=== PATIENT | female | born 1965 | race Caucasian/White ===

== ENCOUNTER 2017-11-08 00:54 | Inpatient (IN) | payer OTHER ==
[~2017-11-08] VITALS: Ht 170.2 cm; Wt 61.9 kg
[~2017-11-08 00:54] MED LIST: ALBU18HF INH; ALBU8.5H5 INH; METR500T PO
[2017-11-08] MEDS ORDERED: DICYCLOMINE 20 MG TABLET PO ONE (01:30)
[2017-11-08] MEDS ORDERED: ONDANSETRON ODT 4 MG PO ONE (01:30)
[2017-11-08] MEDS ORDERED: MORPHINE SULFATE 4 MG/ML, 1ML ONE (01:47)
[2017-11-08] MEDS ORDERED: DICYCLOMINE 20 MG TABLET ONE (01:47)
[2017-11-08] MEDS ORDERED: ONDANSETRON ODT 4 MG ONE (01:47)
[2017-11-08] MEDS: MORPHINE SULFATE 4 MG/ML, 1ML IVPush PRN ×2 (02:00→04:02)
[2017-11-08 02:06] LABS: CLOSTRIDIUM DIFFICILE ANTIGEN NEGATIVE; CLOSTRIDIUM DIFFICILE TOXIN NEGATIVE (Negative)
[2017-11-08 02:18] LABS: BASOPHILS # (AUTO) 0.03 x10^3/uL (0-0.1); BASOPHILS % (AUTO) 1 % (0-1); EOSINOPHILS # (AUTO) 0.12 x10^3/uL (0-0.4); EOSINOPHILS % (AUTO) 3 % (1-7); LYMPHOCYTES # (AUTO) 1.39 x10^3/uL (1-3.4); LYMPHOCYTES % (AUTO) 29 % (22-44); MD NO; MEAN CORPUSCULAR HGB CONC 33.7 g/dL (32.4-35.8); MEAN CORPUSCULAR VOLUME 92.1 fL (80-100); MEAN PLATELET VOLUME 7.5 fL (7.4-10.4); MONOCYTES # (AUTO) 0.59 x10^3/uL (0.2-0.8); MONOCYTES % (AUTO) 12 % (2-9); NEUTROPHILS # (AUTO) 2.68 x10^3/uL (1.8-6.8); NEUTROPHILS % (AUTO) 56 % (42-75); PLATELET COUNT 114 x10^3/uL (130-400); RED BLOOD COUNT 4.47 x10^6/uL (3.82-5.3); RED CELL DISTRIBUTION WIDTH 15.4 % (9.6-15.2)
[2017-11-08 02:28] LABS: ALANINE AMINOTRANSFERASE 17 U/L (12-78); ALBUMIN 3.1 g/dL (3.4-5.0); ANION GAP 6 mmol/L (5-15); CALCIUM 8.7 mg/dL (8.5-10.1); CHLORIDE 112 mmol/L (98-107); CREATININE 0.74 mg/dL (0.55-1.02)
[2017-11-08 02:30] LABS: ALKALINE PHOSPHATASE 75 U/L (45-117); BILIRUBIN,TOTAL 0.8 mg/dL (0.2-1.0); TOTAL PROTEIN 7.6 g/dL (6.4-8.2)
[2017-11-08 04:00] VITALS: BP 139/74
[2017-11-08] MEDS: SODIUM CHLORIDE 0.9% 1,000 ML IV SCH ×3 (04:54→20:11)
[2017-11-08] MEDS ORDERED: ENALAPRILAT 1.25 MG/ML, 2ML IVPush PRN (05:00)
[2017-11-08] MEDS ORDERED: ACETAMINOPHEN 325 MG TABLET PO PRN (05:00)
[2017-11-08] MEDS ORDERED: TEMPLATE NON-FORMULARY MED. (Albuterol Sulfate (Ventolin Hfa) 2 PUFF(S)) INH SCH (05:00)
[2017-11-08] MEDS ORDERED: hydrALAzine 20 MG/ML, 1ML IVPush PRN (05:00)
[2017-11-08] MEDS ORDERED: GLEC1TAB PO (05:39)
[2017-11-08] MEDS ORDERED: METH10TA6 PO (05:39)
[2017-11-08 07:52] VITALS: BP 125/76
[2017-11-08] MEDS: morphine SULFATE 10 MG/ML, 1ML IVPush PRN ×4 (07:55→22:22)
[2017-11-08] MEDS ORDERED: METHIMAZOLE 5 MG TAB PO SCH (08:00)
[2017-11-08] MEDS ORDERED: METHADONE 10 MG TABLET PO SCH (09:00)
[2017-11-08] MEDS: ENOXAPARIN 40 MG/0.4 ML SQ SCH (11:07)
[2017-11-08] MEDS: NICOTINE 14MG/24 HR PATCH.TD24 TD SCH (13:19)
[2017-11-08 13:55] VITALS: BP 143/79
[2017-11-08] MEDS: ONDANSETRON ODT 4 MG PO PRN ×2 (16:48→22:22)
[2017-11-08 19:21] VITALS: BP 155/84
[2017-11-08] MEDS ORDERED: [UNRECOGNIZED DRUG - OTHER] PO SCH (21:00)
[2017-11-09 01:17] VITALS: BP 149/82
[2017-11-09] MEDS: SODIUM CHLORIDE 0.9% 1,000 ML IV SCH ×3 (03:03→15:12)
[2017-11-09] MEDS: morphine SULFATE 10 MG/ML, 1ML IVPush PRN (03:08)
[2017-11-09] MEDS: ONDANSETRON ODT 4 MG PO PRN (03:08)
[2017-11-09 04:43] LABS: MEAN CORPUSCULAR HEMOGLOBIN 31.7 pg (27.0-34.8); MEAN CORPUSCULAR HGB CONC 34.4 g/dL (32.4-35.8); RED BLOOD COUNT 4.04 x10^6/uL (3.82-5.3); RED CELL DISTRIBUTION WIDTH 15.6 % (9.6-15.2)
[2017-11-09 04:53] LABS: ANION GAP 6 mmol/L (5-15); CALCIUM 8.1 mg/dL (8.5-10.1); CHLORIDE 112 mmol/L (98-107)
[2017-11-09 05:00] LABS: ALANINE AMINOTRANSFERASE 12 U/L (12-78); ALBUMIN 2.8 g/dL (3.4-5.0); ALKALINE PHOSPHATASE 75 U/L (45-117); BILIRUBIN,TOTAL 2.9 mg/dL (0.2-1.0); CHOL/HDL RATIO 3.4; CHOLESTEROL, TOTAL 118 mg/dL (140-239); CREATININE 0.54 mg/dL (0.55-1.02); HDL CHOL % 30 % (28-40); HDL CHOLESTEROL (DIRECT) 35 mg/dL (40-60); LDL CHOLESTEROL,CALCULATED 64 mg/dL (54-169); LDL/HDL RATIO 1.8 (0.5-3.0); TOTAL PROTEIN 6.7 g/dL (6.4-8.2); TRIGLYCERIDES 93 mg/dL (50-200); VLDL CHOLESTEROL 19 mg/dL (0-25)
[2017-11-09 05:56] LABS: BASOPHILS # (AUTO) 0.03 x10^3/uL (0-0.1); BASOPHILS % (AUTO) 1 % (0-1); EOSINOPHILS # (AUTO) 0.07 x10^3/uL (0-0.4); EOSINOPHILS % (AUTO) 2 % (1-7); LYMPHOCYTES # (AUTO) 1.35 x10^3/uL (1-3.4); LYMPHOCYTES % (AUTO) 36 % (22-44); MD SCAN; MEAN PLATELET VOLUME 7.5 fL (7.4-10.4); MONOCYTES # (AUTO) 0.34 x10^3/uL (0.2-0.8); MONOCYTES % (AUTO) 9 % (2-9); NEUTROPHILS # (AUTO) 1.94 x10^3/uL (1.8-6.8); NEUTROPHILS % (AUTO) 52 % (42-75); PLATELET COUNT 87 x10^3/uL (130-400)
[2017-11-09] MEDS ORDERED: MAVYRET PO SCH (08:00)
[2017-11-09 08:20] VITALS: BP 157/84
[2017-11-09] MEDS: ENOXAPARIN 40 MG/0.4 ML SQ SCH (08:45)
[2017-11-09] MEDS: NICOTINE 14MG/24 HR PATCH.TD24 TD SCH (08:46)
[2017-11-09] MEDS ORDERED: KETOROLAC 30 MG/1 ML IVPush PRN (11:00)
[2017-11-09 13:08] VITALS: BP 153/79
[2017-11-09] MEDS ORDERED: PNEUMOCOCCAL 23 VACCINE IM-VACC ONE (17:00)
== END 2017-11-09 19:00 | disposition home or self-care (01) | DRG 440 ==
LOC: ED 01:49 → EDIP 03:19 → 3NW 03:58
PROVIDERS: ADMIT Hospitalist; ATTEND Hospitalist
DX: K85.10 Biliary acute pancreatitis without necrosis or infection (principal); D69.6 Thrombocytopenia, unspecified; J44.9 Chronic obstructive pulmonary disease, unspecified; T40.605A Adverse effect of unspecified narcotics, initial encounter; Y92.89 Other specified places as the place of occurrence of the external cause; K80.20 Calculus of gallbladder without cholecystitis without obstruction
CPT/HCPCS: 36415; 74181; 76700; 80053; 80061; 83690; 83735; 84100; 85025; 87324; 89055; 90732; 96374; J1650; J1885; Q0162; J2270; J7030

== ENCOUNTER 2017-11-30 03:59 | Emergency (ER) | payer OTHER ==
[~2017-11-30] VITALS: Ht 170.2 cm; Wt 62.4 kg
[~2017-11-30 03:59] MED LIST changes: +GLEC1TAB PO; +METH10TA6 PO
[2017-11-30 05:15] VITALS: BP 152/90
== END 2017-11-30 05:16 | disposition home or self-care (01) ==
LOC: ED 05:10
DX: J34.0 Abscess, furuncle and carbuncle of nose (principal); L03.211 Cellulitis of face; L02.01 Cutaneous abscess of face; J44.9 Chronic obstructive pulmonary disease, unspecified
CPT/HCPCS: 93005; 99284

== ENCOUNTER 2018-01-19 06:11 | Inpatient (IN) | payer OTHER ==
[~2018-01-19] VITALS: Ht 170.2 cm; Wt 63.4 kg
[2018-01-19] MEDS ORDERED: SODIUM CHLORIDE 0.9% 1,000 ML IV ONE ×2 (06:26→07:42)
[2018-01-19] MEDS ORDERED: SODIUM CHLORIDE FLUSH 10ML SYR IVF ONE (06:30)
[2018-01-19] MEDS ORDERED: SODIUM CHLORIDE 0.9% 1,000ML IVBOLUS ONE (06:30)
[2018-01-19] MEDS ORDERED: ONDANSETRON 2MG/ML, 2ML IVPush ONE (06:30)
[2018-01-19] MEDS ORDERED: ONDANSETRON 2MG/ML, 2ML ONE ×2 (06:38→14:50)
[2018-01-19] MEDS ORDERED: HYDROmorphone 2 MG/ML, 1ML ONE ×2 (06:40→08:20)
[2018-01-19] MEDS: HYDROmorphone 2 MG/ML, 1ML IVPush PRN ×2 (06:46→08:29)
[2018-01-19 06:50] LABS: MEAN CORPUSCULAR HEMOGLOBIN 31.9 pg (27.0-34.8); MEAN CORPUSCULAR HGB CONC 34.7 g/dL (32.4-35.8); MEAN CORPUSCULAR VOLUME 92.1 fL (80-100); RED BLOOD COUNT 4.74 x10^6/uL (3.82-5.3); RED CELL DISTRIBUTION WIDTH 15.8 % (9.6-15.2)
[2018-01-19 07:00] LABS: ALBUMIN 3.7 g/dL (3.4-5.0); ANION GAP 6 mmol/L (5-15); CALCIUM 8.4 mg/dL (8.5-10.1); CHLORIDE 111 mmol/L (98-107)
[2018-01-19 07:04] LABS: ALANINE AMINOTRANSFERASE 18 U/L (12-78); ALKALINE PHOSPHATASE 68 U/L (45-117); BILIRUBIN,TOTAL 1.1 mg/dL (0.2-1.0); CREATININE 0.74 mg/dL (0.55-1.02); TOTAL PROTEIN 8.2 g/dL (6.4-8.2)
[2018-01-19 07:10] LABS: MEAN PLATELET VOLUME 7.2 fL (7.4-10.4); PLATELET COUNT 83 x10^3/uL (130-400)
[2018-01-19 07:13] LABS: BASOPHILS # (AUTO) 0.02 x10^3/uL (0-0.1); BASOPHILS % (AUTO) 1 % (0-1); EOSINOPHILS # (AUTO) 0.12 x10^3/uL (0-0.4); EOSINOPHILS % (AUTO) 3 % (1-7); LYMPHOCYTES # (AUTO) 1.19 x10^3/uL (1-3.4); LYMPHOCYTES % (AUTO) 31 % (22-44); MD SCAN; MONOCYTES # (AUTO) 0.32 x10^3/uL (0.2-0.8); MONOCYTES % (AUTO) 8 % (2-9); NEUTROPHILS # (AUTO) 2.15 x10^3/uL (1.8-6.8); NEUTROPHILS % (AUTO) 57 % (42-75)
[2018-01-19] MEDS ORDERED: BUDE10.22 INH (07:52)
[2018-01-19] MEDS ORDERED: ONDANSETRON 2MG/ML, 2ML IVPush PRN ×3 (08:00→18:30)
[2018-01-19] MEDS ORDERED: HYDROmorphone 1 MG/ML, 1ML IVPush PRN (08:00)
[2018-01-19] MEDS ORDERED: SODIUM CHLORIDE FLUSH 10ML SYR IVF PRN (08:00)
[2018-01-19] MEDS ORDERED: MORPHINE SULFATE 4 MG/ML, 1ML IVPush PRN ×3 (09:30→18:30)
[2018-01-19] MEDS ORDERED: LACTATED RINGERS 1,000 ML IV SCH ×2 (09:30→18:30)
[2018-01-19 09:50] VITALS: BP 147/73
[2018-01-19 10:04] VITALS: BP 147/73
[2018-01-19 13:35] VITALS: BP 176/84
[2018-01-19] MEDS ORDERED: MIDAZOLAM 1 MG/ML, 2ML ONE (14:22)
[2018-01-19] MEDS ORDERED: FENTANYL PF 100 MCG/2ML ONE ×3 (14:22→16:16)
[2018-01-19] MEDS ORDERED: BUPIVACAINE/PF 0.5% ONE (14:35)
[2018-01-19] MEDS ORDERED: EPINEPHRINE 1 MG/ML, 1ML ONE (14:36)
[2018-01-19] MEDS ORDERED: CEFAZOLIN 1,000 MG ONE (14:50)
[2018-01-19] MEDS ORDERED: DEXAMETHASONE 4 MG/ML, 1ML ONE (14:50)
[2018-01-19] MEDS ORDERED: PROPOFOL 10 MG/ML, 20ML ONE (14:50)
[2018-01-19] MEDS ORDERED: SUCCINYLCHOLINE 20 MG/ML, 10ML ONE (14:50)
[2018-01-19] MEDS ORDERED: hydrALAzine 20 MG/ML, 1ML IV PRN (15:30)
[2018-01-19] MEDS ORDERED: LABETALOL 5MG/ML, 20ML IV PRN (15:30)
[2018-01-19] MEDS ORDERED: ALBUTEROL SULFATE 2.5 MG/3 ML NPPB PRN ×2 (15:30→18:30)
[2018-01-19] MEDS ORDERED: HYDROmorphone 1 MG/ML, 1ML IV PRN (15:30)
[2018-01-19] MEDS ORDERED: OXYcodone 5 MG/5 ML ORAL.SOL UDC PO PRN (15:30)
[2018-01-19] MEDS ORDERED: PROMETHAZINE 25 MG/ML, 1ML IV PRN (15:30)
[2018-01-19] MEDS ORDERED: OXYcodone 5 MG/5 ML ORAL.SOL UDC ONE (16:16)
[2018-01-19] MEDS: FENTANYL PF 100 MCG/2ML IV PRN ×2 (16:20→16:31)
[2018-01-19] MEDS ORDERED: morphine SULFATE 10 MG/ML, 1ML ONE (16:45)
[2018-01-19] MEDS ORDERED: HYDR-3240 PO (18:03)
[2018-01-19] MEDS ORDERED: HYDROmorphone 2 MG/ML, 1ML IV PRN (18:30)
[2018-01-19] MEDS ORDERED: ONDANSETRON ODT 4 MG PO PRN (18:30)
[2018-01-19] MEDS: LACTATED RINGERS 1,000 ML IV SCH (18:30)
[2018-01-19 19:41] VITALS: BP 142/76
[2018-01-19] MEDS: HYDROcodone/APAP 5/325 TABLET PO PRN (23:50)
[2018-01-20] VITALS: BP 133/85
[2018-01-20] MEDS: LACTATED RINGERS 1,000 ML IV SCH (03:51)
[2018-01-20] MEDS: HYDROcodone/APAP 5/325 TABLET PO PRN ×4 (05:32→15:30)
[2018-01-20] MEDS ORDERED: morphine SULFATE 10 MG/ML, 1ML IVPush ONE (07:30)
[2018-01-20] MEDS ORDERED: methylPREDNISolone SOD SUCC 125 MG/2 ML IVPush ONE (07:30)
[2018-01-20 08:36] VITALS: BP 142/79
[2018-01-20] MEDS ORDERED: FLUTICASONE/VILANTEROL 100-25MCG/INH INH SCH (09:00)
[2018-01-20 12:45] VITALS: BP 151/89
== END 2018-01-20 18:01 | disposition home or self-care (01) | DRG 417 ==
LOC: ED 07:37 → EDIP 07:42 → 4NOR 08:40
PROVIDERS: ADMIT Internal Medicine; ATTEND Internal Medicine
PROC: 0FT44ZZ Resection of Gallbladder, Percutaneous Endoscopic Approach (ICD-10-PCS; principal; 2018-01-19 15:00)
DX: K80.00 Calculus of gallbladder with acute cholecystitis without obstruction (principal); J18.9 Pneumonia, unspecified organism; J96.01 Acute respiratory failure with hypoxia; J44.0 Chronic obstructive pulmonary disease with (acute) lower respiratory infection; B19.20 Unspecified viral hepatitis C without hepatic coma; E03.9 Hypothyroidism, unspecified; E05.00 Thyrotoxicosis with diffuse goiter without thyrotoxic crisis or storm; E86.0 Dehydration; K74.69 Other cirrhosis of liver
CPT/HCPCS: 36415; 99285; J7613; 71045; 76700; 80053; 83690; 85025; 88304; 93005; 94640; 96361; 96374; J0171; J0690; J1100; J1170; J2250; J2405; J2704; J3010; J3490; J0330; J2270; J2930; J7030; J7120